=== PATIENT | female | born 1980 | race Caucasian/White ===

== ENCOUNTER 2021-05-14 16:00 | Emergency (ER) | payer OTHER, SELFPAY ==
--- NOTE | 2021-05-14 16:14 | ED.ABDPAIN ---
HPI - Abdominal Pain General Chief Complaint: Abdominal Pain Stated Complaint: Abdominal Pain Time Seen by Provider: 05/14/21 16:15 Source: patient and RN notes reviewed Mode of arrival: ambulatory Limitations: no limitations History of Present Illness HPI narrative: 41-year-old female presents to the [facility] with complaints of abdominal pain. Patient reports right upper and epigastric pain, nausea and bloating since Friday. Pain has gradually gotten worse. Last bowel movement was today. States it was partially water and partially very hard. No urinary symptoms. No vaginal complaints. Abdominal surgery was a tubal ligation, still has her appendix and gallbladder. Denies fevers, chest pain, shortness of breath. MD elicited complaint: abdominal pain Related Data Home Medications Medication Instructions Recorded Confirmed spironolactone 50 mg DAILY 05/14/21 05/14/21 tretinoin 1 applic TOPICAL HS 05/14/21 05/14/21 Allergies Allergy/AdvReac Type Severity Reaction Status Date / Time No Known Allergies Allergy Verified 05/14/21 18:42 Review of Systems Review of Systems: All systems reviewed & are unremarkable except as noted in HPI and below Constitutional: Constitutional: Reports no additional constitutional complaints, Denies chills and Denies fever(s) Eyes: Eyes: Reports no additional eye complaints ENT: Reports system reviewed and no additional complaints, except as documented Cardiovascular: Cardiovascular: Reports no additional cardiovascular complaints, Denies chest pain and Denies radiating jaw, neck or arm pain Respiratory: Respiratory: Reports no additional respiratory complaints, Denies cough, Denies dyspnea and Denies wheezing Gastrointestinal: Gastrointestinal: Reports as per HPI, Reports abdominal pain, Reports bloating, Denies constipation, Reports diarrhea, Reports nausea and Denies vomiting Genitourinary: Genitourinary: Reports no additional female genitourinary complaints, Denies abnormal vaginal bleeding, Denies nocturia, Denies urinary incontinence and Denies vaginal discharge Musculoskeletal: Musculoskeletal: Reports no additional musculoskeletal complaints, Denies back pain and Denies joint swelling Integumentary/Breasts: Skin/Breast: Reports system reviewed and no additional complaints, except as docu Neurologic: Reports system reviewed and no additional complaints, except as documented Psychiatric: Psychiatric: Reports no additional psychiatric complaints Allergic/Immunologic: Allergic/Immunologic: Reports no additional allergic/immunologic complaints PMFSH Past Medical History Medical History No significant medical problems Surgical History Surgical History History of tubal ligation Family History Family History (Updated 05/14/21 @ 23:38 by Leni Shah RN) Other No significant family history Social History Social History Smoking status: Never smoker Spiritual care concerns: No Comments At the time of my signature, I reviewed and agree with the nursing past medical, surgical, social, and family history. There is no relevant family history pertinent to the patient complaint. Exam Const: General: alert and ill appearing acutely Nutritional Appearance: well nourished Orientation/consciousness: patient oriented x3 Limitations: no limitations HENMT: Head: normal to inspection Ears: external ears normal Eyes: Pupils: Equal, round and reactive pupils present Neck: Neck: normal visual inspection, no lymphadenopathy and no meningeal signs Chest: Chest palpation & inspection: normal inspection of the chest Resp: Effort & Inspection: normal respiratory effort Cardio: Rate: regular rate Rhythm: regular rhythm GI: GI Palp: Yes Soft to palpation and Yes Tenderness to palpation present (GI) (Right upper
[2021-05-14 16:15] VITALS: BP 137/74; PULSE 72; RESP 16; TEMP 37; O2SAT 100
== END 2021-05-14 16:33 | disposition short-term general hospital (02) ==
PROVIDERS: Emergency Provider Nurse Practitioner
DX: R10.11 Right upper quadrant pain (principal)
CPT/HCPCS: 99212; G0463

== ENCOUNTER 2021-05-14 16:51 | Observation (INO) | payer OTHER, SELFPAY ==
--- NOTE | ~2021-05-14 | US_ITS ---
EXAMINATION: US pelvic complete w TV EXAM DATE: 05/15/2021 11:36 INDICATION: Adnexal cyst, abnormal CT. TECHNIQUE: Pelvic transabdominal and transvaginal sonogram was performed. There are multiple graysca le and Doppler images available for interpretation. Correlation is made to abdomen pelvis CT from yes terday. FINDINGS: Uterus measures 7.8 x 5.0 x 4.9 cm, with possibility of several subcentimeter fibroids. En dometrial stripe measures 3 mm, within normal limits. There is no free pelvic fluid. Right adnexa: The ovary measures 3.6 x 1.3 x 1.4 cm and is morphologically normal. CT finding is prob ably patient's normal ovary or physiologic cyst requiring no further workup. Ovarian vascular flow co nfirmed. Left adnexa: The ovary measures 4.0 x 2.1 x 2.1 cm and is morphologically normal. Ovarian vascular fl ow confirmed. IMPRESSION: 1. Possible small fibroids. 2. Morphologically normal ovaries. Reviewed, dictated and finalized at location A. PROCESS WORKER
--- NOTE | ~2021-05-14 | US_ITS ---
EXAMINATION: US right upper quadrant DATE: 05/15/2021 11:32 INDICATION: Elevated liver enzymes TECHNIQUE: Multiple grayscale and Doppler ultrasound images of the abdomen were obtained. COMPARISON: CT dated 05/14/2021 FINDINGS: The pancreatic head and body are normal in appearance. The pancreatic tail is not visualized. Liver has normal echogenicity and contour, with a smooth surface. No liver lesion identified. No intrahepat ic biliary duct dilation suspected. Portal venous flow was seen in the hepatopetal, normal direction and has normal Doppler waveform. Cholelithiasis with multiple small echogenic foci with subtle pin puller ior acoustic shadowing in the dependent aspect of the otherwise normal-appearing gallbladder. Common bile duct measures 4 mm diameter which is normal. Sonographic Reaves sign was reported as negative by the senior loss control specialist.The visualized proximal to mid inferior vena cava is normal. IMPRESSION: 1. Cholelithiasis without acute cholecystitis or intra/extrahepatic biliary ductal dilation. Reviewed, dictated and finalized at location A. FORMER IMPRESSION: 1. Cholelithiasis without acute cholecystitis or intra/extrahepatic biliary ángel candie dilation.
--- NOTE | ~2021-05-14 | CT_ITS ---
EXAMINATION: CT abdomen pelvis w con DATE: 05/14/2021 21:04 INDICATION: Upper abdominal pain TECHNIQUE: Computed tomography (CT) of the abdomen and pelvis was performed with 100 cc Omnipaque 350 intravenous contrast. The dose-length product was 612.88 mGy-cm. Automated exposure control and iter ative reconstruction technique were employed. COMPARISON: None. FINDINGS: Lung bases are unremarkable. Heart size normal. No significant pleural or pericardial effus ion. The right kidney is severely atrophic with hypertrophy of the left kidney. The liver, spleen, pa ncreas, adrenal glands are unremarkable. Gallbladder is present. Nonobstructive bowel gas pattern. Th ere is 2.3 cm right adnexal cyst, likely ovarian. Nonobstructive bowel gas pattern. Small hiatal adriano ia. No free air or free fluid. Small low-density lesion upper pole of the left kidney, most likely be nign cysts. IMPRESSION: 1. Right adnexal cyst measuring 3 2.3 cm, likely ovarian. 2: Severe right renal atrophy with left renal hypertrophy. Reviewed, dictated and finalized at location A. ZAG SPRING MACHINE OPERATOR
[2021-05-14 16:56] VITALS: BP 150/89; PULSE 76; RESP 18; TEMP 36.1; O2SAT 100
[2021-05-14 17:45] LABS: Basophils Percent Auto 0.4 % (0.2-1.2); Eosinophils Absolute Auto 0.1 K/mm3 (0-0.3); Eosinophils Percent Auto 0.6 % (0-4.4); Hematocrit 38.3 % (37.0-47.0); Hemoglobin 13.1 g/dL (12.0-15.0); Immature Granulocyte Absolute 0.03 K/mm3 (0.00-0.031); Immature Granulocyte Percent A 0.4 % (0-0.5); Lymphocytes Absolute Auto 1.63 K/mm3 (0.9-3.2); Lymphocytes Percent Auto 19.5 % (18.3-44.2); Mean Corpuscular HGB Conc 34.2 g/dl (32-36); Mean Corpuscular Hemoglobin 31.6 pg (26-34); Mean Corpuscular Volume 92.5 fl (80-100); Mean Platelet Volume 10.2 fl (7.4-10.4); Monocytes Absolute Auto 0.4 K/mm3 (0.1-0.6); Monocytes Percent Auto 4.7 % (2.6-8.5); Neutrophils Absolute Auto 6.2 K/mm3 (1.3-6.7); Neutrophils Percent Auto 74.4 % (45.5-73.1); Platelet Count Result 231 k/mm3 (150-375); Red Blood Count 4.14 M/mm3 (4.2-5.4); Red Cell Distribution Width 12.6 % (11.5-14.5); White Blood Count 8.4 K/mm3 (4.5-10.0)
[2021-05-14 17:50] LABS: Alanine Aminotransferase 113 U/L (4-35); Albumin Level 4.8 g/dL (3.5-5.1); Alkaline Phosphatase 74 U/L (38-126); Anion Gap 2 mmol/L (8-16); Aspartate Amino Transferase 135 U/L (14-36); Bilirubin,Total 0.3 mg/dL (0.2-1.3); Blood Urea Nitrogen 9 mg/dL (7-17); Calcium 9.6 mg/dL (8.4-10.2); Carbon Dioxide 33 mmol/L (22-30); Chloride 101 mmol/L (98-107); Estimated CRCL calculation 97 ml/min; Estimated Glomerular Filt Rate > 60; Glucose 95 mg/dL (65-110); Lipase 1341 U/L (23-300); Potassium 4.5 mmol/L (3.4-5.0); Sodium 136 mmol/L (137-145)
[2021-05-14 18:09] LABS: Add Urine Microscopic? NO; Appearance Urine Clear (Clear); Bilirubin Urine Negative (Negative); Blood Urine Negative (Negative); Color Urine Yellow (Yellow); Glucose Urine UA Negative (Negative); Ketones Urine Negative (Negative); Leukocyte Esterase Ur Negative LEU/UL (Negative); Nitrate Urine Negative (Negative); Protein Urine Negative (Negative); Specific Grav Ur 1.014 (1.001-1.035); Urobilinogen Urine Negative mg/dL (<2.0)
--- NOTE | 2021-05-14 18:12 | ED.ABDPAIN ---
HPI - Abdominal Pain General Chief Complaint: Abdominal Pain <Sue Lau MD - Last Filed: 05/14/21 21:07> Stated Complaint: RUQ pain <Sue Lau MD - Last Filed: 05/14/21 21:07> Time Seen by Provider: 05/14/21 17:58 <Sue Lau MD - Last Filed: 05/14/21 21:07> Source: patient <Sue Lau MD - Last Filed: 05/14/21 21:07> Mode of arrival: ambulatory <Sue Lau MD - Last Filed: 05/14/21 21:07> Limitations: no limitations <Sue Lau MD - Last Filed: 05/14/21 21:07> History of Present Illness HPI narrative: Patient presents with bilateral upper abdominal pain started 4 days ago, intermittent, gradually getting worse, associated with nausea and sometimes radiation to the back. Patient denies any fever, chills, vomiting, diarrhea, constipation, urinary symptoms. Patient denies any abdominal surgery. Patient does not smoke or drink or uses drugs. <Sue Lau MD - Last Filed: 05/14/21 21:07> Related Data Home Medications: Home Medications Medication Instructions Recorded Confirmed No Home Medications 05/14/21 05/14/21 <Sue Lau MD - Last Filed: 05/14/21 21:07> Allergies/Adverse Reactions: Allergies Allergy/AdvReac Type Severity Reaction Status Date / Time No Known Allergies Allergy Verified 05/14/21 18:42 <Sue Lau MD - Last Filed: 05/14/21 21:07> Review of Systems Review of Systems: CONSTITUTIONAL: Denies fever, chills, or sweats. EYES: Denies visual changes, redness, or discharge. ENT: Denies rhinorrhea, congestion, sore throat, or otalgia. CARDIOVASCULAR: Denies chest pain, palpitations, or edema. RESPIRATORY: Denies cough or dyspnea. GASTROINTESTINAL: Denies abdominal pain, nausea, vomiting, or diarrhea. GENITOURINARY: Denies dysuria or hematuria. SKIN: Denies rash or itching. MUSCULOSKELETAL: Denies back pain, joint pain, or myalgia. NEUROLOGIC: Denies headache, numbness, or weakness. PSYCHIATRIC: Denies anxiety or depression. <Sue Lau MD - Last Filed: 05/14/21 21:07> [facility] Past Medical History Medical History: Medical History No significant medical problems <Sue Lau MD - Last Filed: 05/14/21 21:07> Surgical History Surgical History: Surgical History History of tubal ligation <Sue Lau MD - Last Filed: 05/14/21 21:07> Exam Narrative: General appearance: Well-developed, well-nourished Skin: Normal color Head: Normocephalic, nontraumatic Eyes: Clear conjunctiva ENT: Oropharynx normal, ears normal, nose normal Neck: Supple, nontender Chest and respiratory: Airway patent, no respiratory distress, no accessory muscle use Heart: Regular rate/rhythm Abdomen: Soft, diffuse tenderness upper abdomen, mainly epigastric area Vascular: Normal peripheral pulses, normal capillary refill. 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 <Sue Lau MD - Last Filed: 05/14/21 21:07> Date: 05/14/21 <Sue Lau MD - Last Filed: 05/14/21 21:07> Time: 21:07 <Sue Lau MD - Last Filed: 05/14/21 21:07> Vital Signs Vital signs: Vital Signs Temperature 36.1 C L 05/14/21 16:56 Pulse Rate 76 05/14/21 16:56 Respiratory Rate 18 05/14/21 16:5
[2021-05-14 18:37] VITALS: BP 129/88; PULSE 75; RESP 18; TEMP 37; O2SAT 100
[2021-05-14] MEDS: SODIUM CHLORIDE 0.9% IV 1,000 ML 999 ML IV CONT (19:31)
[2021-05-14] MEDS: HYDROmorphone HCL INJ (*CRX) 1 MG/ML SYR 0.5 MG IV PUSH (19:32)
[2021-05-14] MEDS: ONDANSETRON INJ 4 MG/2 ML VIAL IV PUSH (19:32)
--- NOTE | 2021-05-14 19:35 | PC.NURSE ---
Pt had tubal ligation. Does not want to attempt to urinate for test at this time. Will sign form in CT scan.
[2021-05-14 22:47] VITALS: BP 120/73; PULSE 79; RESP 18; O2SAT 100
--- NOTE | 2021-05-14 23:30 | ADMGEN ---
This patient, Ngoc Shelby, was admitted to 3 [facility] Surg Room 309-01. Patient/family oriented to hospital policies and general routines including ID bracelet, bed and alarms, visiting hours, pain management, procedures, bathroom and other care routines, personal items, smoking policy, room service/diet, and visiting hours. Information on how to activate the Rapid Response Team has been discussed. Patient/Family are encouraged to report perceived risks to care and to ask questions if they do not understand what they are told or what they should do.
[2021-05-14 23:42] VITALS: BMI 29.2
[2021-05-14 23:47] VITALS: PULSE 79; RESP 18; O2SAT 100
[2021-05-14] MEDS: SODIUM CHLORIDE 0.9% IV 1,000 ML 125 ML IV CONT (23:53)
--- NOTE | 2021-05-15 01:21 | PM.IMHP ---
H&P: HPI History of Present Illness Date/Time: 05/14/21 22:58 Chief Complaint: Abdominal pain Narrative: Patient presents with abdominal pain severe since Friday. The pain is intermittent and had 1st episode on Friday while she was out in the car waiting for her daughter. Not related to food. The pain was very bad with associated nausea no vomiting no fever or chills. Lasted for about 20-30 minutes she massaged her upper abdomen which made it better and spontaneously resolved in about half an hour. She was doing well on Friday and Friday and had another episode again this Friday which was very bad and lasted about the same time. Associated nausea no vomiting. With recurrence she came to the ER for evaluation. She was noted to have elevated lipase level and getting admitted for further evaluation and management. She states that on she drank 1 beer. She drinks beer maybe once a week and she does not drink a lot. She denies any other complaints. No fever chills her CT scan did not show any pancreatitis however showed right adnexal cyst likely ovarian and right renal atrophy. She already knew she had right renal atrophy in the past. Review of Systems Review of Systems: - CONSTITUTIONAL: Denies weight loss, fever and chills. - HEENT: Denies changes in vision and hearing - RESPIRATORY: Denies SOB and cough. - CV: Denies palpitations and CP. - GI: Reports abdominal pain, nausea, denies vomiting and diarrhea. - : Denies dysuria and urinary frequency. - MSK: Denies myalgia and joint pain. - SKIN: Denies rash and pruritus. - NEUROLOGICAL: Denies headache and syncope. - PSYCHIATRIC: Denies recent changes in mood. Denies anxiety and depression. All systems reviewed & are unremarkable except as noted in HPI and below Constitutional: Constitutional: Reports fatigue and Reports weakness Neurologic: Reports weakness Endocrine: Endocrine: Reports fatigue PMFSH Past Medical History Medical History No significant medical problems Surgical History Surgical History History of tubal ligation Family History Family History (Updated 05/14/21 @ 23:38 by Leni Shah RN) Other No significant family history Social History Social History Smoking status: Never smoker Spiritual care concerns: No Meds Home Medications and Allergies Home Medications Medication Instructions Recorded Confirmed Type spironolactone 50 mg DAILY 05/14/21 05/14/21 History tretinoin 1 applic TOPICAL HS 05/14/21 05/14/21 History Allergies Allergy/AdvReac Type Severity Reaction Status Date / Time No Known Allergies Allergy Verified 05/14/21 18:42 Vital Signs Vital Signs - 24 hr 05/14/21 16:56 05/14/21 18:37 05/14/21 22:47 Temperature 97.0 F L 98.6 F Pulse Rate 76 75 79 Respiratory Rate 18 18 18 Blood Pressure 150/89 H 129/88 120/73 Pulse Oximetry 100 100 100 Exam Narrative: General appearance: Well-developed, well-nourished Skin: Normal color Head: Normocephalic, nontraumatic Eyes: Clear conjunctiva ENT: Oropharynx normal, ears normal, nose normal Neck: Supple, nontender Chest and respiratory: Airway patent, no respiratory distress, no accessory muscle use Heart: Regular rate/rhythm Abdomen: Soft, mild tenderness upper abdomen, mainly epigastric area Vascular: Normal peripheral pulses, normal capillary refill. 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
[2021-05-15 05:44] VITALS: BP 113/71; PULSE 76; RESP 18; TEMP 36.2; O2SAT 100
[2021-05-15 06:38] LABS: Basophils Percent Auto 0.4 % (0.2-1.2); Eosinophils Absolute Auto 0.1 K/mm3 (0-0.3); Eosinophils Percent Auto 1.7 % (0-4.4); Hemoglobin 11.4 g/dL (12.0-15.0); Immature Granulocyte Absolute 0.03 K/mm3 (0.00-0.031); Immature Granulocyte Percent A 0.6 % (0-0.5); Lymphocytes Absolute Auto 1.08 K/mm3 (0.9-3.2); Lymphocytes Percent Auto 19.9 % (18.3-44.2); Mean Corpuscular HGB Conc 33.5 g/dl (32-36); Mean Corpuscular Hemoglobin 30.6 pg (26-34); Mean Corpuscular Volume 91.4 fl (80-100); Mean Platelet Volume 10.4 fl (7.4-10.4); Monocytes Absolute Auto 0.3 K/mm3 (0.1-0.6); Monocytes Percent Auto 5.5 % (2.6-8.5); Neutrophils Absolute Auto 3.9 K/mm3 (1.3-6.7); Neutrophils Percent Auto 71.9 % (45.5-73.1); Platelet Count Result 193 k/mm3 (150-375); Red Blood Count 3.72 M/mm3 (4.2-5.4); Red Cell Distribution Width 12.5 % (11.5-14.5); White Blood Count 5.4 K/mm3 (4.5-10.0)
[2021-05-15 06:50] LABS: Alanine Aminotransferase 73 U/L (4-35); Albumin Level 3.8 g/dL (3.5-5.1); Alkaline Phosphatase 56 U/L (38-126); Anion Gap 4 mmol/L (8-16); Aspartate Amino Transferase 45 U/L (14-36); Bilirubin,Total 0.4 mg/dL (0.2-1.3); Blood Urea Nitrogen 6 mg/dL (7-17); Calcium 8.6 mg/dL (8.4-10.2); Carbon Dioxide 26 mmol/L (22-30); Chloride 105 mmol/L (98-107); Estimated CRCL calculation 98 ml/min; Estimated Glomerular Filt Rate > 60; Glucose 100 mg/dL (65-110); Lipase 117 U/L (23-300); Potassium 4.1 mmol/L (3.4-5.0); Sodium 135 mmol/L (137-145)
[2021-05-15 08:00] VITALS: O2SAT 100
[2021-05-15] MEDS: SODIUM CHLORIDE 0.9% IV 1,000 ML 125 ML IV CONT (08:34)
[2021-05-15] MEDS: ENOXAPARIN 40 MG/0.4 ML SYRINGE SUB-Q (08:37)
[2021-05-15] MEDS: FAMOTIDINE 20 MG/2 ML VIAL IV PUSH (08:37)
--- NOTE | 2021-05-15 10:07 | PM.IMPN ---
Progress Note: A&P Assessment and Plan (1) Acute pancreatitis: Qualifiers: Acute pancreatitis complication: unspecified Pancreatitis type: unspecified pancreatitis type Qualified Code(s): K85.90 - Acute pancreatitis without necrosis or infection, unspecified Code(s): K85.90 - Acute pancreatitis without necrosis or infection, unspecified Status: Acute Assessment and Plan: Patient is a 41-year-old woman with no chronic medical history other than acne, who presented to the emergency room for 2 episodes epigastric and right upper quadrant abdominal pain with radiation to her mid back on Friday 05/11 and Monday 05/14. Patient denies any similar symptoms in the past. She does state her mother had her gallbladder taken out due to gallbladder issues. She only drinks about 1 beer per week. Initial vitals showed elevated blood pressure 150/89, normal heart rate 76, afebrile, normal oxygenation on room air. Initial labs showed normal CBC with differential other than slightly elevated neutrophils at 74%. Slight hyponatremia at 136, elevated CO2 at 33. Normal renal function, elevated AST at 135, elevated ALT at 113 and elevated lipase at 1341. Normal urinalysis. CT abdomen pelvis showed Right adnexal cyst measuring 3 2.3 cm, likely ovarian. Severe right renal atrophy with left renal hypertrophy. The liver, spleen, pancreas, adrenal glands are unremarkable. Gallbladder is present. Patient was admitted into the hospital with repeat labs, IV fluid hydration, IV pain control in further evaluation with right upper quadrant ultrasound and pelvic ultrasound. Patient is feeling well today without any complaints Lipase is normalized LFTs are trending down Concerned she passed a gallbladder stone and right upper quadrant ultrasound will further evaluate for any more gallstones which could cause issues Will continue light fluid IV hydration at this time Will discuss with surgery once ultrasound returns Continue monitoring. (2) Elevated liver enzymes: Code(s): R74.8 - Abnormal levels of other serum enzymes Status: Acute Assessment and Plan: See above (3) Adnexal cyst: Code(s): N94.9 - Unspecified condition associated with female genital organs and menstrual cycle Status: Acute Assessment and Plan: Getting pelvic ultrasound for further evaluation of cyst (4) Right renal atrophy: Code(s): N26.1 - Atrophy of kidney (terminal) Status: Acute Assessment and Plan: Patient aware of this history. 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 She denies any fevers, chills, chest pain, shortness of breath, cough, nausea, vomiting, abdominal pain, leg swelling, calf pain, or any other symptoms at this time. Review of Systems Review of Systems: All systems reviewed & are unremarkable except as noted in HPI and below Exam Narrative: General: 41-year-old woman taking a nap in bed. Easily arousable. Appears comfortable. In no acute distress. Skin: No jaundice or cyanosis. Good skin turgor. Neck: Full range of motion. Supple. Respiratory: Lungs are clear to auscultation bilaterally. No bony chest wall tenderness. Cardiovascular: The heart has a regular rate and rh
[2021-05-15 14:00] VITALS: BP 119/79; PULSE 94; RESP 16; TEMP 36.8; O2SAT 98
--- NOTE | 2021-05-15 16:55 | PM.DS ---
DS: Admitting Diagnosis Discharge Date 05/15/21 Admitting Diagnosis Abd pain DS: Discharge Diagnosis Discharge Diagnosis (1) Acute pancreatitis: Qualifiers: Acute pancreatitis complication: unspecified Pancreatitis type: unspecified pancreatitis type Qualified Code(s): K85.90 - Acute pancreatitis without necrosis or infection, unspecified Code(s): K85.90 - Acute pancreatitis without necrosis or infection, unspecified Status: Acute Assessment and Plan: Patient is a 41-year-old woman with no chronic medical history other than acne, who presented to the emergency room for 2 episodes epigastric and right upper quadrant abdominal pain with radiation to her mid back on Friday 05/11 and Monday 05/14. Patient denies any similar symptoms in the past. She does state her mother had her gallbladder taken out due to gallbladder issues. She only drinks about 1 beer per week. Initial vitals showed elevated blood pressure 150/89, normal heart rate 76, afebrile, normal oxygenation on room air. Initial labs showed normal CBC with differential other than slightly elevated neutrophils at 74%. Slight hyponatremia at 136, elevated CO2 at 33. Normal renal function, elevated AST at 135, elevated ALT at 113 and elevated lipase at 1341. Normal urinalysis. CT abdomen pelvis showed Right adnexal cyst measuring 3 2.3 cm, likely ovarian. Severe right renal atrophy with left renal hypertrophy. The liver, spleen, pancreas, adrenal glands are unremarkable. Gallbladder is present. Patient was admitted into the hospital with repeat labs, IV fluid hydration, IV pain control in further evaluation with right upper quadrant ultrasound and pelvic ultrasound. Patient is feeling well today without any complaints Lipase is normalized LFTs are trending down Right upper quadrant ultrasound showed cholelithiasis without acute cholecystitis or intra/extrahepatic biliary ductal dilation I talked with Dr. Thomson the on-call surgeon who recommended if the patient was not having any more gallbladder attack symptoms, LFT and pancreatic enzymes/are trending down normal then she can follow-up with him in the office. Recommends continuing a low-fat diet and seen him in the office in 1 week. If the patient has more episodes of gallbladder attacks I did prescribe her pain medication to take. If she continues to have pain despite pain meds then she should come back to the emergency room for further evaluation and monitoring. I talked to the patient about this and she feels comfortable with being discharged home on a low-fat diet and follow-up in the office next week. Also to follow with PCP in 1 week. The patient understands agrees the plan all questions answered. (2) Elevated liver enzymes: Code(s): R74.8 - Abnormal levels of other serum enzymes Status: Acute Assessment and Plan: See above (3) Adnexal cyst: Code(s): N94.9 - Unspecified condition associated with female genital organs and menstrual cycle Status: Acute Assessment and Plan: Pelvic/transvaginal ultrasound showed possible small fibroids, morphologically normal ovaries. She will follow-up with her primary care and/or diplomatic interpreter for further evaluation monitoring. (4) Right renal atrophy: Code(s): N26.1 - Atrophy of kidney (terminal) Status: Acute Assessment and Plan: Patient aware of this history. 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
== END 2021-05-15 19:48 | disposition home or self-care (01) ==
LOC: ANHED 21:11 → ANH3MEDSUR 22:49
PROVIDERS: Emergency Medicine; Admitting Provider Internal Medicine; Emergency Provider Emergency Medicine; Visit Provider Family Medicine
DX: K85.90 Acute pancreatitis without necrosis or infection, unspecified (principal); K80.20 Calculus of gallbladder without cholecystitis without obstruction; R74.8 Abnormal levels of other serum enzymes; N26.1 Atrophy of kidney (terminal); N94.9 Unspecified condition associated with female genital organs and menstrual cycle; L70.9 Acne, unspecified; R10.10 Upper abdominal pain, unspecified
CPT/HCPCS: 36415; 74177; 76705; 76830; 76856; 80053; 81003; 83690; 85025; 96361; 96372; 96374; 96375; 99285; G0378; J1170; J1650; J2405; J7030; Q9967

== ENCOUNTER → 2021-06-08 03:47 | Outpatient (CLI) | payer OTHER, SELFPAY ==
[2021-06-09 15:32] LABS: SARS-CoV-2 RNA PCR Negative (Negative)
== END ==
PROVIDERS: Visit Provider Surgery
DX: Z01.812 Encounter for preprocedural laboratory examination (principal); Z20.822 Contact with and (suspected) exposure to COVID-19
CPT/HCPCS: C9803; U0003; U0005

== ENCOUNTER 2021-06-08 07:52 | Outpatient (CLI) | payer OTHER, SELFPAY ==
[2021-06-08 08:18] LABS: Basophils Percent Auto 0.7 % (0.2-1.2); Eosinophils Absolute Auto 0.1 K/mm3 (0-0.3); Eosinophils Percent Auto 2.2 % (0-4.4); Hematocrit 40.5 % (37.0-47.0); Hemoglobin 13.3 g/dL (12.0-15.0); Immature Granulocyte Absolute 0.01 K/mm3 (0.00-0.031); Immature Granulocyte Percent A 0.2 % (0-0.5); Lymphocytes Absolute Auto 0.85 K/mm3 (0.9-3.2); Lymphocytes Percent Auto 20.5 % (18.3-44.2); Mean Corpuscular HGB Conc 32.8 g/dl (32-36); Mean Corpuscular Hemoglobin 30.4 pg (26-34); Mean Corpuscular Volume 92.7 fl (80-100); Mean Platelet Volume 10.6 fl (7.4-10.4); Monocytes Absolute Auto 0.2 K/mm3 (0.1-0.6); Monocytes Percent Auto 5.8 % (2.6-8.5); Neutrophils Absolute Auto 2.9 K/mm3 (1.3-6.7); Neutrophils Percent Auto 70.6 % (45.5-73.1); Platelet Count Result 207 k/mm3 (150-375); Red Blood Count 4.37 M/mm3 (4.2-5.4); Red Cell Distribution Width 12.4 % (11.5-14.5); White Blood Count 4.1 K/mm3 (4.5-10.0)
[2021-06-08 08:29] LABS: Alanine Aminotransferase 299 U/L (4-35); Albumin Level 4.6 g/dL (3.5-5.1); Alkaline Phosphatase 102 U/L (38-126); Amylase 169 U/L (30-110); Anion Gap 9 mmol/L (8-16); Aspartate Amino Transferase 232 U/L (14-36); Bilirubin,Total 0.5 mg/dL (0.2-1.3); Blood Urea Nitrogen 10 mg/dL (7-17); Calcium 9.4 mg/dL (8.4-10.2); Carbon Dioxide 30 mmol/L (22-30); Chloride 100 mmol/L (98-107); Estimated Glomerular Filt Rate > 60; Glucose 128 mg/dL (65-110); Lipase 663 U/L (23-300); Potassium 4.7 mmol/L (3.4-5.0); Sodium 139 mmol/L (137-145)
== END 2021-06-08 07:53 | disposition home or self-care (01) ==
LOC: ANHSURGERY 07:56
PROVIDERS: Visit Provider Surgery
DX: K81.1 Chronic cholecystitis (principal); Z01.818 Encounter for other preprocedural examination
CPT/HCPCS: 36415; 80053; 82150; 82248; 83690; 85025

== ENCOUNTER 2021-06-11 01:13 | Day surgery (SDC) | payer OTHER, SELFPAY ==
[2021-06-05 08:29] VITALS: BMI 27.9
--- NOTE | 2021-06-05 08:43 | PC.NURSE ---
Addendum entered by Meghana Cobian RN 06/05/21 08:53: Patient aware of Hibiclens soap Original Note: Report to the Outpatient Waiting Room, entrance under the green pavilion located off [facility], at 0600 on date 06-11-21. OR Time: 0730. - You and your visitor will be asked a series of questions to screen for COVID 19 for your protection. - A mask is required within the hospital. - Only one visitor is allowed at this time. Patient visitors will be guided where to wait when not with patient. Preoperative COVID Testing Requirements: No COVID Test needed if: (proof is required; if not received patient will have Rapid Test prior to entry) - Patient has received COVID Vaccine at least 14 days prior to procedure date or - Patient has positive COVID test result within last 90 days of surgery date. COVID Test needed if above criteria is not met If not COVID vaccinated a COVID test must be conducted within 72 hours of surgery and patient is asked to isolate self from time of testing until procedure. You will go to the [facility] for your COVID testing. The [facility] site is located at the corner of [address] [facility]. You will only be called if COVID results are positive and your surgeon may reschedule your elective surgery date. 06-08-21 @ 0850 Patients may have clear liquids (water, carbonated beverages, clear teas, apple juice) until 3 hours prior to surgery with a maximum of 20 ounces. 0430 - No food from midnight until time of surgery - Infants may have breast milk until 4 hours before surgery, formula 6 hours prior to surgery. - Children will be allowed to drink immediately following surgery. If applicable, please bring a bottle or sippy cup to assist with drinking. Juice, water, soda, and popsicles are readily available. For infants on formula, please bring formula the day of surgery. Pacifiers are allowed. Take the following medications with a SIP of water the morning of surgery: Beason if needed Medications to discontinue per physician: N/A Date to take last dose: N/A Please no make-up, nail russian, hairspray, perfume, deodorant, or body powder the day of surgery. No jewelry (including any body piercings) or valuables the day of surgery, leave them at home. Please take a shower or bath the night before, or the morning of, surgery with an antibacterial soap. Wear comfortable, loose fitting clothing. Children are encouraged to wear pajamas. - Jewelry must be removed prior to entering the operating room. Rings and piercings that are not removed may be cut off. - The hospital will not accept responsibility for valuables. - Please leave all valuables, including medications, at home the day of surgery. If you are going home after surgery, a licensed vibratory pile driver must drive you home. - NO public transportation without another adult. - We recommend that an adult stay with you for 24 hours following discharge. - We also recommend that you do not drive, make important decision, drink alcoholic beverages, or take any drugs that were not prescribed by your health care provider for at least 24 hours after your discharge time. For Pediatric surgeries, we recommend two adults accompany the child home (only one inside the building at this time). Follow any additional instructions given to you from your surgeon. Telephone instructions given to Ngoc Shelby and asked if any additional questions and then verbalized understanding. Patient advised to call surgeon office or pre surgery nurse liaison [phone] if any additional questions.
--- NOTE | 2021-06-08 15:02 | P.PNAN_ITS ---
Anes - Initial Pre Proc Eval Procedure: Operation Date: 06/11/21 07:30 Proposed Procedures p Laparoscopic Cholecystectomy,Possible Intraoperative Cholangiogram, Possible Open - Kel Thomson MD s Excision of Skin Lesion on Right Upper Quadrant of Abdomen - Kel Thomson MD Date/Time: 06/08/21 15:02 Surgeon: Kel Thomson MD Pre Op Diagnosis: Chronic Cholecystitis, Skin Lesion Right Upper Abd Patient Data Age: 41 Gender: F Height: 1.68 m Weight: 78.47 kg Allergies Allergy/AdvReac Type Severity Reaction Status Date / Time No Known Allergies Allergy Verified 06/11/21 06:14 Home Medications Medication Instructions Recorded Confirmed Type spironolactone 100 mg PO DAILY 05/14/21 06/11/21 History tretinoin 1 applic TOPICAL HS PRN 05/14/21 06/05/21 History hydrocodone-acetaminophen 1 tablet PO Q6H PRN #7 tablet 05/15/21 06/11/21 Rx Patient hx anesthesia problems: none Family hx anesthesia problems: none Results Review: All pre-operative results and documents have been reviewed as part of the pre-operative evaluation. [facility] Past Medical History Medical History No significant medical problems Surgical History Surgical History History of tubal ligation Family History Family History Father Myocardial infarction Mother Hypertension Hypercholesterolemia Gallbladder disease Unknown Diabetes mellitus Cerebrovascular accident Grandparent Cancer of kidney Other No significant family history Social History Social History Social History: caffeine use: 1 cup coffee daily Smoking status: Never smoker Second hand tobacco smoke exposure: No Alcohol intake: current Drinks per week: 2 Alcohol use details: selzers Substance use: never Substance use type: does not use Living arrangements: with family 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 Informed Consent: The patient's anesthetic plan and its attendant risks and benefits were discussed with the patient/family/POA. Questions were solicited and answers provided to the satisfaction of the patient/family/POA.
[2021-06-11] VITALS (9 sets, daily range): BP systolic 121–141; BP diastolic 53–89; PULSE 50–98; RESP 12–16; TEMP 36.4–36.6; O2SAT 96–100
--- NOTE | 2021-06-11 06:22 | WPDANESEPP ---
Anes - Eval Pre Procedure Procedure: Operation Date: 06/11/21 07:30 Proposed Procedures p Laparoscopic Cholecystectomy,Possible Intraoperative Cholangiogram, Possible Open - Kel Thomson MD s Excision of Skin Lesion on Right Upper Quadrant of Abdomen - Kel Thomson MD Date/Time: 06/11/21 06:22 Pre Op Diagnosis: Chronic Cholecystitis, Skin Lesion Right Upper Abd Patient Data Age: 41 Gender: F Height: 1.68 m Weight: 78.47 kg Allergies Allergy/AdvReac Type Severity Reaction Status Date / Time No Known Allergies Allergy Verified 06/11/21 06:14 Home Medications Medication Instructions Recorded Confirmed Type spironolactone 100 mg PO DAILY 05/14/21 06/11/21 History tretinoin 1 applic TOPICAL HS PRN 05/14/21 06/05/21 History hydrocodone-acetaminophen 1 tablet PO Q6H PRN #7 tablet 05/15/21 06/11/21 Rx Patient hx anesthesia problems: none Family hx anesthesia problems: none Results Review: All pre-operative results and documents have been reviewed as part of the pre-operative evaluation. [facility] Past Medical History Medical History No significant medical problems Surgical History Surgical History History of tubal ligation Family History Family History Father Myocardial infarction Mother Hypertension Hypercholesterolemia Gallbladder disease Unknown Diabetes mellitus Cerebrovascular accident Grandparent Cancer of kidney Other No significant family history Social History Social History Social History: caffeine use: 1 cup coffee daily Smoking status: Never smoker Second hand tobacco smoke exposure: No Alcohol intake: current Drinks per week: 2 Alcohol use details: selzers Substance use: never Substance use type: does not use Living arrangements: with family 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
[2021-06-11] MEDS: LACTATED RINGERS 1,000 ML 30 ML IV CONT ×2 (06:48→09:30)
[2021-06-11] MEDS: ACETAMINOPHEN 500 MG TABLET 1000 MG PO (06:49)
[2021-06-11] MEDS: KETOROLAC 15 MG/ML VIAL (*BKC) IV PUSH (06:51)
--- NOTE | 2021-06-11 07:18 | WPDHPUPDATE1 ---
History and Physical Update Update Date/Time: 06/11/21 07:18 History and Physical has been reviewed, including an updated exam of the patient. There are NO changes in the patient's condition. Risks, benefits, and alternatives have been discussed and questions answered. Patient agrees to proceed with procedure.
[2021-06-11] MEDS: ceFAZolin 2 GM/D5W 50 ML 2 GM/50 ML BAG IVPB (07:32)
[2021-06-11] MEDS: LIDO 2%/EPINEPHRINE 1:100,000 20 ML VIAL INFILTRATE (07:42)
--- NOTE | 2021-06-11 09:53 | W.PM.PROC2 ---
Procedure Note - Detailed Date of Procedure 06/11/21 Pre-op Diagnosis 1.Chronic Cholecystitis with cholelithiasis 2.Skin Lesion Right Upper Abdomen Post-op Diagnosis same Procedure Performed 1. Laparoscopic Cholecystectomy 2. Excision of 4 mm brown raised skin lesion right upper quadrant of abdomen Surgeon Kel Thomson MD [employer] Jacquelyn [email or web address].OR certified first assistant Anesthesia general Indications Patient has been having intermittent episodes of epigastric right upper quadrant pain consistent with biliary colic. Ultrasound showed gallbladder without significant place inflammation but with suspected small shadowing gallstones. Findings A non inflamed gallbladder with what appeared to be a cystic artery that branched on the gallbladder anterior and posterior. I also carefully inspected both ovaries because the patient's CT scan done about 1 month ago in the ED had shown a 2-3 cm cyst on the right ovary. 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 There were two apparent paratubal cysts along the right tube. Right ovary looked normal to me and the left ovary was a little bit darker but fairly normal-looking also. Description of Procedure Patient was seen preoperatively in the holding area and risks, benefits and alternatives confirmed. Patient was taken to the operating room and general anesthesia was induced. A time out was then preformed with the surgery team confirming patient and site of surgery. The abdomen was prepped and draped in the usual sterile fashion. Incision was made just below the umbilicus with an 11 blade knife. I placed 2 stay sutures of O- Vicryl on either side of the mid-line fascia beneath the umbilicus and was then able to slide in the Bernal cannula through the fascial defect into the peritoneum. First under low flow and then under high flow the abdomen was insufflated with carbon dioxide never exceeding a pressure of 14. I carefully inspected the gallbladder and it did not appear to be inflamed. We looked inferiorly there were no inguinal hernias. We could not see the ovaries with the patient supine. We then planned the incisions on the abdomen. For the epigastric incision it appears that I could easily use the site of the skin lesion which was slightly to the right of midline in the right upper quadrant for the epigastric port site. Therefore, I outlined an elliptical transverse excision for the for 4 mm skin lesion present there. This was brown and slightly raised. Local anesthetic was infiltrated here and at the sites of the of the proposed port sites. Elliptical excision was performed of the skin lesion in the epigastric area just to the right of midline. (following closure this measured 2 cm transversely). Then we proceeded to place the ports for the laparoscopic cholecystectomy. Three 5 mm trocars were then introduced under direct vision. The following trocars were introduced under direct vision: a 5 mm in the epigastrium (site of skin lesion) and two 5 mm trocars along the right costal margin laterally in the subcostal area. There were not any adhesions to the underside of the gallbladder. I then carefully used the L-shaped cautery and the [place] dissector to dissect out the triangle of Calot. I then was able to dissect out both the cystic duct and cystic artery and identify a window of safety. The gall bladder was grasped and the cystic duct and artery were dissected free and clipped with an 5 mm endo-clip picker / packer. The cystic duct and artery were clipped with use of 2 clips on the patient's side 1 on the gallbladder side utilizing a 5 mm endoclip-picker / packer. The cystic duct was then transected. The cystic artery was also transected at this point. The gall bladder was removed using electrocautery and then removed from the abdomen using a large 10 mm grasper via the umbilical incision. Prior to removing any of the ports we carefully tilted that th
[2021-06-11] MEDS: fentaNYL CITRATE INJ (*CRX) 100 MCG/2 ML VIAL 25 MCG IV PUSH ×2 (10:12→10:22)
== END 2021-06-11 11:48 | disposition home or self-care (01) ==
PROVIDERS: Visit Provider Surgery
PROC: 0FT44ZZ Resection of Gallbladder, Percutaneous Endoscopic Approach (ICD-10-PCS; CPT 47562; principal; 2021-06-11 07:30)
PROC: (CPT 47562; 2021-06-11 07:30)
DX: K81.1 Chronic cholecystitis (principal); D23.5 Other benign neoplasm of skin of trunk; N83.8 Other noninflammatory disorders of ovary, fallopian tube and broad ligament
CPT/HCPCS: 47562; 36415; 80053; 82150; 82248; 83690; 85025; 88304; 88305; A9270; C9803; J0690; J1100; J1170; J1885; J2250; J2405; J2704; J2710; J3010; J7030; J7120; Q9966; U0003; U0005